=== PATIENT | male | born 1985 | race Hispanic/Latino ===

== ENCOUNTER 2019-01-04 19:18 | Inpatient (IN) | payer SELFPAY ==
[~2019-01-04] VITALS: Ht 167.6 cm; Wt 94.8 kg
[~2019-01-04 19:18] MED LIST: AMOXICILLIN500 MG OR; BACTROBAN2 % EX; PERCOCET 5/325M1 TAB OR
--- NOTE | 2019-01-04 19:27 | NUR ---
PT AMBULATORY TO ROOM # 13 FOR BEDSIDE TRIAGE.
--- NOTE | 2019-01-04 19:45 | NUR ---
PT STATES THIS HAS BEEN GOING ON FOR ABOUT 3 MONTHS , USUALLY AFTER EATING. NEVER BEEN TO A DOCTOR FOR THIS COMPLAINT
[2019-01-04 20:05] LABS: HEMATOCRIT 46.4 % (39.0-50.0); HEMOGLOBIN 15.7 g/dl (14.0-18.0); IMMATURE GRANULOCYTES 0.5 % (0.0-5.0); MEAN CELL VOLUME 83.3 fL CALC (80.0-100.0); MEAN CORPUSCULAR HGB 28.2 pG CALC (26.0-32.0); MEAN CORPUSCULAR HGB CONC 33.8 g/L CALC (32.0-36.0); NEUT# 9.85 thou/uL (1.82-7.42); RED BLOOD COUNT 5.57 mill/uL (4.70-6.10); RED CELL DISTRI WIDTH 13.3 % (11.5-15.5)
[2019-01-04 20:07] LABS: URINE BILIRUBIN - DIPSTICK NEGATIVE (NEGATIVE); URINE BLOOD DIPSTICK NEGATIVE (NEGATIVE); URINE COLOR YELLOW; URINE GLUCOSE - DIPSTICK NEGATIVE (NEGATIVE); URINE KETONE NEGATIVE (NEGATIVE); URINE LEUK ESTERASE NEGATIVE (NEGATIVE); URINE NITRITE - DIPSTICK NEGATIVE (Negative); URINE PROTEIN - DIPSTICK NEGATIVE (NEG-TRACE); URINE SPECIFIC GRAVITY <=1.005; URINE UROBILINOGEN - DIPSTICK 0.2 E.U./dL (0.2)
[2019-01-04 20:22] LABS: ALBUMIN 4.8 g/dL (3.2-5.0); ALKALINE PHOSPHATASE 103 u/l (38-126); AMYLASE 31 u/l (30-110); ANION GAP 18 (6-22 (CALC)); BILIRUBIN, TOTAL 0.6 mg/dL (0.0-1.4); BUN 17 mg/dL (9-20); BUN/CREATININE RATIO 22 (12-20 (CALC)); CARBON DIOXIDE 24 mmol/l (22-30); CHLORIDE 97 mmol/l (95-108); CREATININE 0.8 mg/dL (0.7-1.3); GFR > 60 ML/MIN (>=60 (CALC)); GFR FOR AFR.AMER. > 60 ML/MIN (>=60 (CALC)); LIPASE 41 u/l (23-300); POTASSIUM 4.3 mmol/l (3.5-5.1); SGOT/AST 49 u/l (17-59); SODIUM 135 mmol/l (137-146); TOTAL PROTEIN 8.1 g/dL (6.3-8.2)
--- NOTE | 2019-01-04 20:26 | NUR ---
PT RESTING QUIETLY ON STRETCHER, NO NAUSEA OR VOMITING AT THIS TIME OR SINCE ARRIVAL
--- NOTE | 2019-01-04 21:09 | NUR ---
PT DENIES ANY NAUSEA/VOMITING AT THIS TIME. VITAL SIGNS REMAIN STABLE
--- NOTE | 2019-01-04 21:33 | NUR ---
PT RESTING QUIETLY ON STRETCHER WITH FAMILY AT BEDSIDE
--- NOTE | 2019-01-04 21:42 | NUR ---
REPORT RECEIVED FROM BOLA HORTA. PT RESTING AT THIS TIME.
--- NOTE | 2019-01-04 21:48 | NUR ---
DR NOE AT BEDSIDE, INFORMED PT NEED FOR ADMISSION.
--- NOTE | 2019-01-04 21:54 | NUR ---
PT VOIDED 300CC YELLOW URINE.
--- NOTE | 2019-01-04 22:07 | NUR ---
REPORT CALLED TO ANK[facility] HORTA MED/SURG.
--- NOTE | 2019-01-04 22:25 | NUR ---
PT TO RM [id number] WITH RN. PT COND STABLE. BELONGINGS WITH PT.
[2019-01-04 22:30] VITALS: BP 119/74
--- NOTE | 2019-01-04 23:30 | NUR ---
PATIENT ADMITTED FROM ER VIA STRETCHER WITH ER STAFF IN ATTENDANCE. PATIENT ABLE TO TRANSFER FROM STRETCHER TO THE STANDING SCALE TO BED. STEADY ON HIS FEET. PATIENT IS [place]EN[place] SPEAKING ONLY. COOK COLD MEAT AMANUEL NEELY DEPT HERE TO ASSIST. PATIENT ADMITTED FOR RUQ PAIN-STATES THAT HE HAS HAD FOR A FEW DAYS BUT GOT WORSE TODAY. PATIENT WITH ANKLE BRACELET TO LEFT ANKLE-STATES THAT IT WAS PLACED ON BY IMMIGRATION IN OCT. PATIENT STATES THAT HE LIVES WITH AND UNCLE. PATIENT NPO AT THIS TIME. IV SITE TO RIGHT AC-SITE IS HEALTHY AT THIS TIME. LEVAQUIN INFUSING AT THIS TIME. IVF NS HUNG AND INFUSING AT 125CC/HR. PATIENT WITH RED RAISED RASH TO UPPER BACK, SHOULDERS AND NECK-STATES THAT IT JUST STARTED SINCE RECEIVING ANTIBIOTICS IN ER-RECIEVED FLAGYL AND LEVOQUIN. PHOTO TAKEN AND PLACED IN CHART. PATIENT MEDICATED WITH BENEDRYL 50MG IVP FOR POSSIBLE ALLERGIC REACTION. PATIENT ORIENTED TO ROOM AND SURROUNDINGS. INSTURCTED ON USE OF NURSE CALL LIGHT SUSTEM, TV REMOTE AND PHONE. NPO EXCEPT OF ICE CHIPS AT THIS TIME. CALL LIGHT IN REACH. WILL CONT TO MONITOR.
--- NOTE | 2019-01-04 23:49 | NUR ---
PATIENT RESTING IN BED WITH FAMILY MEMBER RESTING IN RECLINER. IVF HUNG AND INFUSING AT 125CC/HR VIA RIGHT AC SITE. SITE IS HEALTHY WITH GOOD BLOOD RETURN. BENEDRYL 50MG IVP GIVEN FOR POSSIBL ALLERGIC REACTION TO MEDS GIVEN EARLIER. CALL LIGHT IN REACH. WILL CONT TO MONITOR.
--- NOTE | 2019-01-05 04:00 | NUR ---
PATIENT RESTING IN BED IN NO ACUTE DISTRESS. EYES CLOSED AND APPEARS SLEEPING AT THIS TIME. IVF PATENT AND INFUSING AT 125CC/HR. RESPS EVEN AND UNLABORED. CALL LIGHT IN REACH. FAMILY AT BEDSIDE. CALL LIGHT IN REACH.
[2019-01-05 04:35] VITALS: BP 128/62
--- NOTE | 2019-01-05 06:33 | NUR ---
TEMP 101.2-MEDICATED WITH MOTRIN 600MG WITH SIP OF H2O FOR FEVER. RASH TO UPPER BACK, SHOULDERS AND NECK IS MUCH IMPROVED-GONE AT THIS TIME. IVF PATENT AND INFUSING AT 125CC/HR. SITE IS HEALTHY AT THIS TIME. REMAINS NPO EXCEPT FOR SMALL AMT OF ICE CHIPS. DENIES PAIN AT THIS TIME. CALL LIGHT IN REACH. WILL CONT TO MONITOR.
[2019-01-05 07:26] VITALS: BP 101/47
--- NOTE | 2019-01-05 07:33 | NUR ---
PT RESTING IN BED, NO SIGNS OF DISTRESS NOTED,RESP EVEN AND UNLABORED ON RA. DISCUSSED POC, VISITORS AT BEDSIDE. NEW BAG OF IVF INITIATED. PT TEMP REMAINS 101.3 TEMPERATURE DOWN AT LOWEST SETTING, PT IS NOT USING ANY BLANKETS. WILL RETURN AND RECHECK TEMPERATURE. RASH NOTED BY PREVIOUS SHIFT WAS NO LONGER VISABLE. ASSESSMENT COMPLETED. CALL LIGHT IN REACH,CONTINUE TO MONITOR.
--- NOTE | 2019-01-05 12:03 | NUR ---
ORDERS FOR U/S OF THE ABD, RADIOLOGY CALLED AND NOTIFIED TO CALL ONCALL TECH. CONTINUE TO MONITOR.
[2019-01-05 12:12] LABS: HEMATOCRIT 43.6 % (39.0-50.0); HEMOGLOBIN 14.7 g/dl (14.0-18.0); IMMATURE GRANULOCYTES 0.5 % (0.0-5.0); MEAN CORPUSCULAR HGB 28.7 pG CALC (26.0-32.0); MEAN CORPUSCULAR HGB CONC 33.7 g/L CALC (32.0-36.0); NEUT# 6.67 thou/uL (1.82-7.42); RED BLOOD COUNT 5.13 mill/uL (4.70-6.10); RED CELL DISTRI WIDTH 13.4 % (11.5-15.5)
[2019-01-05 12:48] LABS: BUN 14 mg/dL (9-20); BUN/CREATININE RATIO 17 (12-20 (CALC)); CARBON DIOXIDE 27 mmol/l (22-30); CHLORIDE 101 mmol/l (95-108); CREATININE 0.9 mg/dL (0.7-1.3); GFR > 60 ML/MIN (>=60 (CALC)); GFR FOR AFR.AMER. > 60 ML/MIN (>=60 (CALC)); MAGNESIUM 2.1 mg/dL (1.6-2.3); SODIUM 138 mmol/l (137-146)
[2019-01-05 12:49] LABS: ANION GAP 14 (6-22 (CALC)); POTASSIUM 3.8 mmol/l (3.5-5.1)
--- NOTE | 2019-01-05 14:16 | NUR ---
PT TAKEN DOWN TO RADIOLOGY FOR ULTRASOUND.TAKEN VIA WHEELCHAIR ACCOMPANIED BY FLOOR REFINISHER.
--- NOTE | 2019-01-05 14:38 | NUR ---
PT RETURNED FROM RADIOLOGY, STARTED FLAGYL. INSTRUCTED PT TO CALL IF ANY ISSUES APPEAR, OR IF HE BECOMES ITCHY. CALL LIGHT IN REACH,CONTINUE TO MONITOR.
[2019-01-05 16:40] VITALS: BP 111/74
--- NOTE | 2019-01-05 16:59 | NUR ---
IN TO SEE PT, DISCUSSED ANOTHER CT WITH PT AND FAMILY, ALL IN AGREEMENT. STATES PT MAY EAT A REGULAR DIET. WILL MEDICATE WITH MOTRIN FOR FEVER. CALL LIGHT IN REACH,CONTINUE TO MONITOR.
--- NOTE | 2019-01-05 17:11 | NUR ---
PT MEDICATED WITH MOTRIN FOR FEVER 102.0. PT TOLERATED WELL. INFORMED PT WILL BE TAKEN DOWN TO CT WHEN THEY CALL. VERBALIZED UNDERSTANDING. CALL LIGHT IN REACH,CONTINUE TO MONITOR.
[2019-01-05 19:40] VITALS: BP 103/68
--- NOTE | 2019-01-05 20:00 | NUR ---
PATIENT RESTING IN BED-AWAKE ALERT AND ORIENTEDX3. PATIENT IS [place] SPEAKING ONLY-WEAPONS SPECIALIST CHAVEZ HERE TO ASSIST. PATIENT DENIES ANY PAIN AT THIS TIME. NO N/V. STATES THAT HE IS VOIDING QS IN BR. FEVER 9IS TRENDING DOWN. TAKING PO AND TOLERATED WELL. PATIENT FOR CT THORAX LATER TONIGHT. ANKLE BRACELET REMAINS INTACT. IVF NS PATENT AND INFUSING AT 125CC/HR. SITE REMAINS HEALTY. SAFETY PRECAUTIONS REINFORCED THROUGH WEAPONS SPECIALIST. CALL LIGHT IN REACH. WILL CONT TO MONITOR.
--- NOTE | 2019-01-05 21:30 | NUR ---
PATIENT TAKEN TO RADIOLOGY AND BACK VIA WHEELCHAIR BY STAFF FOR CT THORAX. BACK IN BED. VISITOR AT BEDSIDE. ANKLE BRACELET REMAINS IN PLACE. IVF ORDERED WITH CIPRO INFUSING AT THIS TIME. SITE REMAINS HEALTHY. CALL LIGHT IN REACH. WILL CONT TO MONITOR.
--- NOTE | 2019-01-06 | NUR ---
PATIENT RESTING IN BED AT THIS TIME-EYES CLOSED AND POSITIONED ON HIS LEFT SIDE. RESP ARE EVEN AND UNLABORED. AFEBRILE AT THIS TIME. IVF NS PATENT AND INFUSING AT 125CC/HR VIA RIGHT AC SITE. CALL LIGHT IN REACH. WILL CONT TO MONITOR.
--- NOTE | 2019-01-06 04:52 | NUR ---
PATIENT POSITIONED OF LEFT SIDE AND APPEARS SLEEPING AT THIS TIME. IVF PATENT AND INFUSING VIA RIGHT AC SITE. CALL LIGHT IN REACH. WILL CONT TO MONITOR.
[2019-01-06 05:07] VITALS: BP 139/58
--- NOTE | 2019-01-06 07:00 | NUR ---
SHIFT CHANGE REPORT, PT AWAKE ALERT AND ORIENTED, C/O "POKITO" ABDOMINAL PAIN AT THIS TIME, IVF INFUSING, CALL MALONE IN REACH.
[2019-01-06 07:29] VITALS: BP 104/63
--- NOTE | 2019-01-06 09:15 | NUR ---
TRANSPORTED OFF INIT TO PROCEDURE VIA W/C BY VOLUNTEER.
--- NOTE | 2019-01-06 10:22 | NUR ---
JUST TRANSPORTED BACK TO UNIT VIA W/C BY VOLUNTEER.
--- NOTE | 2019-01-06 13:30 | NUR ---
PPD TEST DONE TODAY, GIVEN @ 1330 IN LEFT FOREARM, PT ADVISED TO RETURN ON 01/08/19 OR 01/09/19 FOR READING OF TEST RESULT, MIDALYS TRANSLATED AND PT STATED UNDERSTANDING.
--- NOTE | 2019-01-06 16:00 | NUR ---
BRACELET FOR IMMIGRATION PURPOSES IN PLACE TO LEFT LOWER LEG.
[2019-01-06 16:04] VITALS: BP 102/58
--- NOTE | 2019-01-06 20:00 | NUR ---
PATIENT RESTING IN BED AT THIS TIME-AWAKE ALERT AND ORIENTEDX3. PATIENT WITH MANY VISITOR AT BEDSIDE AT THIS TIME. BRACELET INTACT TO LLE. IV SITE TO RIGHT AC INTACT WITH IVF P ATENT AND INFUSING AT 125CC/HR. SITE APPEARS HEALTHY AT THIS TIME. PATIENT DENIES ANY PAIN AT THIS TIME. CONSENT FOR OR IN AM SIGNED WITH CHAVEZ PATIENT FRIEND TRANSLATING-LAP BRIGID BY DR. BOND. SAFETY PRECAUTIONS REINFORCED THROUGH DEPARTMENT ASSISTANT. CALL LIGHT IN REACH. WILL CONT TO MONITOR.
[2019-01-06 20:05] VITALS: BP 149/80
[2019-01-07] VITALS (8 sets, daily range): BP systolic 106–126; BP diastolic 61–81
--- NOTE | 2019-01-07 00:31 | NUR ---
PATIENT APPEARS SLEEPING AT THIS TIME WITH FRIEND IN RECLINER AND SLEEPING WELL BOTH WITH EYES CLOSED. RESP ARE EVEN AND UNLABORED. IVF PATENT AND INFUSING ORDERED. NPO FOR OR IN AM. CALL LIGHT IN REACH. WILL CONT TO MONITOR.
--- NOTE | 2019-01-07 02:24 | NUR ---
PATIENT APPEARS SLEEPING AT THIS TIME WITH EYES CLOSED AND RESP EVEN AND UNLABORED. NPO FOR OR LATER TODAY. CALL LIGHT IN REACH. FRIEND SLEEPING IN RECLINER. WILL CONT TO SHERIE.
[2019-01-07 04:49] LABS: URINE BILIRUBIN - DIPSTICK NEGATIVE (NEGATIVE); URINE BLOOD DIPSTICK NEGATIVE (NEGATIVE); URINE COLOR YELLOW; URINE GLUCOSE - DIPSTICK NEGATIVE (NEGATIVE); URINE KETONE NEGATIVE (NEGATIVE); URINE LEUK ESTERASE NEGATIVE (NEGATIVE); URINE NITRITE - DIPSTICK NEGATIVE (Negative); URINE PROTEIN - DIPSTICK NEGATIVE (NEG-TRACE); URINE SPECIFIC GRAVITY 1.025; URINE UROBILINOGEN - DIPSTICK 0.2 E.U./dL (0.2)
[2019-01-07 04:57] LABS: URINE AMORPH SEDIMENT MANY hpf (NONE-FER); URINE RBC 0-2 RBC/hpf (0-5); URINE SQUAMOUS EPITHELIAL CELL FEW EPI/hpf (0-FEW); URINE WBC 0-2 WBC/hpf (0-5)
[2019-01-07 06:08] LABS: HEMATOCRIT 44.8 % (39.0-50.0); HEMOGLOBIN 14.9 g/dl (14.0-18.0); IMMATURE GRANULOCYTES 0.5 % (0.0-5.0); MEAN CORPUSCULAR HGB 28.3 pG CALC (26.0-32.0); MEAN CORPUSCULAR HGB CONC 33.3 g/L CALC (32.0-36.0); NEUT# 2.89 thou/uL (1.82-7.42); RED BLOOD COUNT 5.27 mill/uL (4.70-6.10); RED CELL DISTRI WIDTH 13.2 % (11.5-15.5)
[2019-01-07 06:16] LABS: ALBUMIN 4.1 g/dL (3.2-5.0); ALKALINE PHOSPHATASE 92 u/l (38-126); AMYLASE 74 u/l (30-110); ANION GAP 15 (6-22 (CALC)); BILIRUBIN, TOTAL 0.4 mg/dL (0.0-1.4); BUN 15 mg/dL (9-20); BUN/CREATININE RATIO 20 (12-20 (CALC)); CARBON DIOXIDE 27 mmol/l (22-30); CHLORIDE 104 mmol/l (95-108); CREATININE 0.8 mg/dL (0.7-1.3); GFR > 60 ML/MIN (>=60 (CALC)); GFR FOR AFR.AMER. > 60 ML/MIN (>=60 (CALC)); LIPASE 428 u/l (23-300); MAGNESIUM 2.1 mg/dL (1.6-2.3); POTASSIUM 4.4 mmol/l (3.5-5.1); SGOT/AST 75 u/l (17-59); SODIUM 142 mmol/l (137-146); TOTAL PROTEIN 7.3 g/dL (6.3-8.2)
[2019-01-07 06:59] LABS: PROTHROMBIN TIME 10.6 SECONDS (9.0-12.5)
--- NOTE | 2019-01-07 07:00 | NUR ---
SHIFT CHANGE REPORT, PT SLEEPING BUT AWAKEN TO VERBAL STIMULI, ORIENTED, C/O LITTLE PAIN TO RIGHT ABD, IVF INFUSING, CALL MALONE IN REACH, FRIEND AT BEDSIDE.
--- NOTE | 2019-01-07 13:15 | NUR ---
LEAVING UNIT AT THIS TIME VIA STRETCHER WITH OR STAFF (JORDANA & BECKY) FOR PROCEDURE.
--- NOTE | 2019-01-07 15:46 | NUR ---
PT RETURNED TO UNIT VIA STRETCHER BY PACU STAFF AT THIS TIME AND TRANSFERRED TO BED. BEDSIDE REPORT GIVEN BY KRISHAN. PUNCTURE X 4 TO ABDOMEN INTACT WITH DERMABOND. PT GROGGY BUT ORIENTED, C/O MILD PAIN, O2 @ 2L VIA NC IN PLACE, TEDS AND SCD IN PLACE ALSO, WILL CONTINUE TO MONITOR, FAMILY AT BEDSIDE.
--- NOTE | 2019-01-07 17:18 | NUR ---
PT BROKE OUT IN ITCHING/HIVES TO FACE AND HEAD AT THIS TIME, MD WILL BE NOTIFIED MESFIN WHILE ISSUE BEING ADDRESSED WITH BENADRYL.
--- NOTE | 2019-01-07 18:00 | NUR ---
DR JASMINE NOTIFIED OF CONDITION AND WROTE ORDERS. EWELINA AND RYNE (SUPERVISORS) ALSO NOTIFIED OF EVENT AND EVALUATED PT PHYSICALLY. RYNE THINKS THIS MIGHT BE A STRESS RELATED RESPONSE FROM SURGERY. WILL CONTINUE TO MONITOR AND ASSESS PT'S CONDITION.
--- NOTE | 2019-01-07 19:30 | NUR ---
PATIENT RESTING IN BED-DROWSY BUT AROUABLE. PATIENT WITH O2 VIA NASAL CANNULA IN PLACE AT 2LPM. MULTIPLE VISITORS AT BEDSIDE. PATIENT WITH RASH TO FOREHEAD. WAS ALREADY MEDICATED WITH SOLU-MEDROL AND BENEDRYL. IV SITE TO RIGHT AC INTACT AND IVF NS PATENT AND INFUSING AT 125CC/HR. SITE IS HEALTHY AT THIS TIME. PATIENT WITH 4 SMALL INCISIONS TO ABD INTACT WITH DERMABOND-NO DRAINAGE NOTED. CALL LIGHT IN REACH. WILL CONT TO MONTITOR.
--- NOTE | 2019-01-07 21:00 | NUR ---
PATIENT MORE AWAKE-ALERT AND ORIENTEDX3. RASH TO FOREHEAD HAS FADED AT THIS TIME. PATIENT O2 SATS ARE STABLE AND O2 REMOVED. LUNGS ARE CLEAR. ENCOURAGED USE OF IS Q1H WHILE AWAKE. ABLE TO DEMONSTRATE PROPER USE OF THE DEVICE. PATIENT VOIDED QS LLOYD URINE IN THE URINAL. ABD IS SOFT WITH HYPOACTIVE BS. ANKLE BRACELET IN PLACE. SCD'S IN PLACE. PATIENT TAKING PO FLUIDS. SAFETY PRECAUTIONS REINFORCED. CALL LIGHT IN REACH. WILL CONT TO MONITOR
[2019-01-08 00:37] VITALS: BP 117/73
--- NOTE | 2019-01-08 01:54 | NUR ---
APPEARS SLEEPING AT TIME. RESP ARE EVEN AND UNLABORED. IVF PATENT AND INFUSING VIA RIGHT AC SITE. VISITOR SLEEPING IN RECLINER. CALL LIGHT IN REACH. WILL CONT TO MONITOR.
[2019-01-08 04:45] VITALS: BP 106/69
[2019-01-08 06:19] LABS: HEMATOCRIT 43.6 % (39.0-50.0); HEMOGLOBIN 14.9 g/dl (14.0-18.0); IMMATURE GRANULOCYTES 0.6 % (0.0-5.0); MEAN CELL VOLUME 82.4 fL CALC (80.0-100.0); MEAN CORPUSCULAR HGB 28.2 pG CALC (26.0-32.0); MEAN CORPUSCULAR HGB CONC 34.2 g/L CALC (32.0-36.0); NEUT# 10.25 thou/uL (1.82-7.42); RED BLOOD COUNT 5.29 mill/uL (4.70-6.10); RED CELL DISTRI WIDTH 12.8 % (11.5-15.5)
[2019-01-08 06:42] LABS: ALBUMIN 3.7 g/dL (3.2-5.0); ALKALINE PHOSPHATASE 83 u/l (38-126); ANION GAP 15 (6-22 (CALC)); BILIRUBIN, TOTAL 0.3 mg/dL (0.0-1.4); BUN 13 mg/dL (9-20); BUN/CREATININE RATIO 21 (12-20 (CALC)); CARBON DIOXIDE 24 mmol/l (22-30); CHLORIDE 105 mmol/l (95-108); CREATININE 0.7 mg/dL (0.7-1.3); GFR > 60 ML/MIN (>=60 (CALC)); GFR FOR AFR.AMER. > 60 ML/MIN (>=60 (CALC)); POTASSIUM 4.3 mmol/l (3.5-5.1); SGOT/AST 93 u/l (17-59); SODIUM 139 mmol/l (137-146); TOTAL PROTEIN 6.6 g/dL (6.3-8.2)
--- NOTE | 2019-01-08 07:25 | NUR ---
REPORT RECEIVED FROM RULA PASCUAL;PT RESTING IN SEMI FOWLERS POSITION WITH FRIEND AT BEDSIDE;RESPIRATIONS APPEAR EVEN AND UNLABORED ON RA;NO S/S OF DISTRESS NOTED;IV FLUIDS INFUSING WELL TO LAC;FALL PRECAUTIONS IN PLACE WITH BED IN THE LOWEST POSITION AND CALL LIGHT IN REACH;WILL CONTINUE TO MONITOR
[2019-01-08 09:38] VITALS: BP 125/70
--- NOTE | 2019-01-08 09:40 | NUR ---
PT RESTING IN BED WITH FAMILY AT BEDSIDE;VS OBTAINED AND ASSESSMENT COMPLETED;PT NOTED TO BE DJIBOUTIAN SPEAKING,TRANSLATION BY FAMILY MEMBERS AT THIS TIME;PT IS POD #1 LAP BRIGID;PT DENIES ANY CURRENT PAIN OR DISCOMFORTS,PAIN SCALE AND REPORTING EDUCATED;RESPIRATIONS EVEN AND UNLABORED ON RA,CLEAR LUNG SOUNDS;ABDOMEN SOFT ON PALPATION AND ACTIVE IN ALL4 QUADRANTS;X4 INCISIONS NOTED TO BE CDI WITH DERMABOND IN PLACE;STRONG PEDAL PULSES;#20G TO RAC INFUSING NS @ 50ML/HR,SITE APPEARS HEALTHY;PT DENIES ANY ADDITIONAL NEEDS AT THIS TIME AND IS ENCOURAGED TO CALL FOR ASSISTANCE IF NEEDED;CALL LIGHT IN REACH;WILL CONTINUE TO MONITOR
[2019-01-08 12:00] VITALS: BP 122/70
--- NOTE | 2019-01-08 12:40 | NUR ---
PT RESTING IN BED WITH FAMILY AT BEDSIDE;RESPIRATIONS EVEN AND UNLABORED ON RA;PT DENIES ANY CURRENT PAIN OR DISCOMFORTS RATING 1/10 ON THE PAIN SCALE TO ABDOMEN;IV SITE TO RAC REMAINS PATENT AT THIS TIME;UPDATED PT ON POC INCLUDING DISCHARGE HOME;NOTIFIED PT THAT PPD TO LFA IS DUE TO BE READ AT 1330, AFTER RESULTS HE WILL BE DISCHARGE.PT VERBALIZES UNDERSTANDING;ENCOURAGED TO CALL FOR ASSISTANCE IF NEEDED;CALL LIGHT IN REACH;WILL CONTINUE TO MONITOR
[2019-01-08] MEDS ORDERED: OXYCODONE5 M1 PO (12:50)
--- NOTE | 2019-01-08 13:30 | NUR ---
PPD TO RIGHT ARM READ BY CARMELITARN MEASURING AT 0CM.
--- NOTE | 2019-01-08 14:08 | NUR ---
ALL DISCHARGE INSTRUCTIONS PROVIDED AT THIS TIME;PRESCRIPTION OF OXYCODONE PROVIDED;TRANSLATION PROVIDED BY MARIO ALBERTO, REPAIR MECHANIC;PT VERBALIZES UNDERSTANDING;PHONE NUMBER TO 'S OFFICE PROVIDED AND PT ENCOURAGED TO MAKE FOLLOW UP APPT;IV SITE REMOVED WITH CATHETER INTACT;WHEELCHAIR TO BE PROVIDED FOR DICHARGE HOME.
--- NOTE | 2019-01-08 14:18 | NUR ---
Discharge instructions given. Patient verbalizes understanding of same. Discharged in stable condition via Wheelchair to Home with family. All belongings sent with pt. Pt transferred to lobby via wheelchair in stable condition accompanied by volunteer and multiple family members.
== END 2019-01-08 14:17 | disposition home or self-care (01) | DRG 419 ==
LOC: ED 19:18 → ED-I 21:39 → ED 21:49 → MS2 21:50
PROVIDERS: Family Medicine; Nurse Practitioner Family; ADMIT Internal Medicine; ATTEND Internal Medicine Nephrology
PROC: 0FT44ZZ Resection of Gallbladder, Percutaneous Endoscopic Approach (ICD-10-PCS; principal; 2019-01-07)
DX: K81.1 Chronic cholecystitis (principal)
CPT/HCPCS: A9537; J1100; J2710; J2805; Q9967; S0164

== ENCOUNTER 2021-01-27 19:02 | Emergency (ER) | payer SELFPAY ==
[~2021-01-27] VITALS: Ht 167.6 cm; Wt 77.3 kg
[~2021-01-27 19:02] MED LIST changes: +OXYCODONE5 M1 PO
[2021-01-27] MEDS ORDERED: NAPROXEN500 MG PO (21:49)
[2021-01-27] MEDS ORDERED: GENTAMICIN SULF5 ML OS (21:49)
[2021-01-27 22:45] VITALS: BP 129/84
== END 2021-01-27 22:45 | disposition home or self-care (01) | DRG 605 ==
LOC: ED 19:02
DX: S00.03XA Contusion of scalp, initial encounter (principal); S00.12XA Contusion of left eyelid and periocular area, initial encounter; Y04.8XXA Assault by other bodily force, initial encounter